=== PATIENT | female | born 1985 | race Caucasian/White ===

== ENCOUNTER 2022-03-08 14:48 | Emergency (ER) | payer OTHER ==
[2022-03-08 16:38] LABS: HEMOGLOBIN 13.2 gm/dl (12.3-15.3); RED BLOOD COUNT 4.52 M/UL (4.00-5.10); WHITE BLOOD COUNT 13.9 K/UL (4.5-11.0)
[2022-03-08 17:11] LABS: BUN/CREATININE RATIO 15 (0-10)
[2022-03-08] MEDS ORDERED: ZOFRAN 4 MG TAB4 MG PO (22:34)
[2022-03-08] MEDS ORDERED: OMNICEF 300 MG300 MG PO (22:34)
== END 2022-03-08 22:50 | disposition home or self-care (01) ==
LOC: ER1 14:48
PROVIDERS: Emergency Medicine
DX: N39.0 Urinary tract infection, site not specified (principal); Z90.49 Acquired absence of other specified parts of digestive tract; F17.290 Nicotine dependence, other tobacco product, uncomplicated
CPT/HCPCS: 80053; 81001; 83605; 83690; 85025; 87040; 96374; 96375; 96376; 99284; J0696; J1170; J2270; J2405; J2550